=== PATIENT | male | born 1990 | race Caucasian/White ===

== ENCOUNTER 2023-12-28 06:50 | Day surgery (SDC) | payer BC ==
[~2023-12-28 06:50] MED LIST: HYDROmorphone 0.5 MG/0.5 ML SYRINGE IVP PRN; LIDOCAINE 1% (10MG/ML) FOR IV START INTRADERMA PRN; MIDAZOLAM 2 MG/2 ML VIAL IV PRN; OXYMETAZOLINE 0.05% NASL SPRAY 1 SPRAY BOTTLE EA NOSTRIL PRN; fentaNYL (PF) 50 MCG/ML 2 ML AMP IVP PRN
[2023-12-28] MEDS: OXYMETAZOLINE 0.05% NASL SPRAY 1 SPRAY BOTTLE EA NOSTRIL PRN (07:58)
[2023-12-28] MEDS: ONDANSETRON 4 MG/2 ML VIAL IVP ONE (08:20)
[2023-12-28] MEDS: LACTATED RINGERS 1,000 ML IV SCH (08:20)
[2023-12-28] MEDS: IV FLUID CONTINUATION 1,000 ML IV ONE ×2 (08:20→08:27)
[2023-12-28] MEDS: FAMOTIDINE 20 MG/2 ML VIAL IV PRN (08:21)
[2023-12-28] MEDS: DEXAMETHASONE SOD PHOSPHATE 4 MG/ML 1 ML VIAL IV ONE (08:21)
[2023-12-28] MEDS ORDERED: fentaNYL (PF) 50 MCG/ML 2 ML AMP ONE (08:23)
[2023-12-28] MEDS ORDERED: PROPOFOL 10 MG/ML 20 ML VIAL IV ONE (08:23)
[2023-12-28] MEDS ORDERED: LIDOCAINE 4% LTA KIT (4 ML) TOPICAL ONE (08:23)
[2023-12-28] MEDS ORDERED: LIDOCAINE 1% INJ 10MG/ML (20 ML MDV) ONE (08:23)
[2023-12-28] MEDS ORDERED: MIDAZOLAM 2 MG/2 ML VIAL ONE (08:23)
[2023-12-28] MEDS ORDERED: SUCCINYLCHOLINE CHLORIDE 200 MG/10 ML VIAL IV ONE (08:23)
[2023-12-28] MEDS: LIDOCAINE 1%-EPI 1:100,000 20 ML VIAL SUBMUCOSAL ONE ×3 (08:36→08:40)
[2023-12-28] MEDS: BACITRACIN ZINC 500 UNIT/GM OINT 28.4 GM TUBE TOPICAL ONE ×2 (08:55→09:03)
--- NOTE | 2023-12-28 09:09 | P.OP ---
Date of Procedure: 12/28/23 Preoperative Diagnosis: deviated nasal septum Inferior turbinate hypertrophy Postoperative Diagnosis: same Procedure(s) Performed: septoplasty Outfracture and submucous resection of the inferior turbinates Lysis of adhesions left nasal cavity Anesthesia: WILBERTOA Surgeon: Britton Olea Estimated Blood Loss (ml): 5 Pathology: other (septal bone and cartilage) Condition: stable Disposition: PACU Indications for Procedure: is a 33-year-old white male whose had difficulties with chronic nasal airway obstruction bilaterally left greater than right which has not improved medical management Operative Findings: septum deviated left obstruction approximately 90% nasal airway and the 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 The patient underwent induction of general anesthesia with oral endotracheal intubation without difficulty. The patient was prepped and draped in the usual aseptic fashion. 1% lidocaine with 1:100,000 epinephrine was infused submucosally on both sides of the nasal septum. While this was taking vasoconstrictive effect, the inferior turbinates were infractured with a Curran elevator. Partial submucous resection of the inferior turbinates was performed with Coblation device ablating a portion of the submucosal soft tissue. The inferior turbinates were then outfractured with a Curran elevator. there was a small synechia between the inferior turbinate and septum on the left which was lysed sharply.A left hemitransfixion incision was then made through the mucoperichondrial. Mucoperiosteal flap on the left elevated. Bony cartilaginous junction was disarticulated and mucoperiosteal flap on the right was elevated. Bony nasoseptal deformity were removed with Terrence forceps and an inferior cartilaginous strip was removed, leaving a full 1.5 cm caudal stru t. Checking intranasally, this corrected the nasal septal deformities and the hemitransfixion incision was closed with running 4-0 chromic suture. The bilateral Kolb airway splints coated in bacitracin ointment were placed in the nasal cavities and sutured transseptally with 4-0 nylon suture. The patient was then suctioned in an orogastric fashion. The patient was allowed to emerge from general anesthesia, having tolerated the procedure well and was extubated in the operating suite, transferred to postoperative recovery area in satisfactory condition.
[2023-12-28 09:37] VITALS: TEMP 97.4
[2023-12-28] MEDS: SCOPOLAMINE 1 MG/72 HR PATCH TRANSDERM STA (10:09)
[2023-12-28 14:13] VITALS: RESP 18
[2023-12-28 14:15] VITALS: BP 136/79; PULSE 71
== END 2023-12-28 11:31 | disposition home or self-care (01) ==
LOC: OR 06:50
PROVIDERS: ATTEND Otolaryngology
DX: J34.2 Deviated nasal septum (principal); J34.3 Hypertrophy of nasal turbinates; Z88.1 Allergy status to other antibiotic agents; Z98.890 Other specified postprocedural states
CPT/HCPCS: 88300; 88305